=== PATIENT | female | born 1990 | race Caucasian/White ===

== ENCOUNTER → 2022-08-06 | Outpatient (CLI) | payer BC ==
[~2022-08-06] MED LIST: CIPRO 500MG TA500 MG PO; ENTOCORT EC3 MG PO; FLAGYL500 MG PO; NORCO 325 MG-51 TAB PO; NORCO 325 MG-7.1 TAB PO; NULEV0.125 M1 PO; ORTHO TRI-CYCLE1 TAB PO; PENTASA250 MG PO; PREDNISONE 5MG5 MG PO; PROVENTIL0.09 MG/A1 IH; ZOFRAN 4MG T4 MG/TAB PO
== END ==
LOC: MC.RAD 10:42
DX: N61.0 Mastitis without abscess (principal); N60.42 Mammary duct ectasia of left breast; R59.0 Localized enlarged lymph nodes